=== PATIENT | female | born 2000 | race Caucasian/White ===

== ENCOUNTER 2025-04-04 21:38 | Emergency (ER) | payer OTHER, SELFPAY ==
[2025-04-04 21:41] VITALS: BP 128/85
[2025-04-04 22:00] LABS: Urine Character Clear (Clear)
[2025-04-04 22:07] LABS: Urine Squamous Cell >30 /LPF (Few)
[2025-04-04 22:09] LABS: HCG, Serum Qualitative Screen Negative
[2025-04-04 22:10] LABS: Hematocrit 36.4 % (37.0-47.0); Hemoglobin 12.2 g/dL (12.0-16.0); Mean Corp Hgb Conc. 33.5 g/dL (33.0-37.0); Mean Corpuscular Volume 85.6 fL (81.0-99.0); Nucleated Red Blood Cells % 0 %; Platelet Count 304 10^3/uL (130-400); Red Cell Dist. Width 13.0 % (11.5-14.5)
[2025-04-04 22:13] LABS: Urine Red Blood Cell 0-2 /HPF (0-2); Urine White Cell 0-2 /HPF (0-5)
[2025-04-04 22:14] LABS: ALT (SGPT) 61 U/L (0-35); AST (SGOT) 32 U/L (14-36); Albumin 4.2 g/dl (3.5-5.0); Alkaline Phosphatase 75 U/L (38-126); Blood Urea Nitrogen 14 mg/dl (7-17); Calcium 9.5 mg/dl (8.4-10.2); Carbon Dioxide 27 mmol/L (22-30); Chloride 109 mmol/L (98-107); Glucose 73 mg/dl (70-99); Lipase 103 U/L (23-300); Potassium 4.0 mmol/L (3.5-5.1); Sodium 142 mmol/L (135-145); Total Protein 6.8 g/dl (6.3-8.2); eGFR > 60.00
[2025-04-04 22:36] VITALS: BMI 53.8
[2025-04-04 22:40] VITALS: BP 118/87
[2025-04-04 23:00] VITALS: BP 110/51
--- NOTE | 2025-04-05 00:34 | ED.GENMED ---
History of Present Illness
General
Chief Complaint: Abdominal Pain
Source: patient
Exam Limitations: none
Time Seen by Provider: 04/04/25 22:36
Nursing documentation reviewed up to this point in time: agreed with
History of Present Illness
History of Present Illness:
Note:
CHIEF COMPLAINT(S)
Left lower abdominal pain.
HISTORY OF PRESENT ILLNESS
The patient is a 24-year-old female who presents with a one-day history of pain located on the left lower quadrant of her abdomen. The pain began as mild discomfort but has progressively worsened, making it difficult for her to walk or move. She
describes the pain as intense with physical activity, particularly when pressure is applied. There is no fever, chills, nausea, or vomiting. The patient denies any changes in bowel habits, urinary pain, or characteristics suggestive of menstrual
cramps, noting that the pain is above the umbilicus on light pressure when moving. The pain does not radiate and is not associated with back pain, chest pain, shortness of breath, headache, diarrhea, or constipation. There is no noted recent dietary
change, and the pain does not correlate with ovarian discomfort. Her last menstrual period was three days ago. She has had one section without complications.
PAST SURGICAL HISTORY
section (one).
PHYSICAL EXAM
General: Alert, no acute distress.
Skin: Warm, dry.
Head: Normocephalic, atraumatic.
Neck: Supple, trachea midline.
Eye, ears, nose, mouth, and throat: Oral mucosa moist.
Cardiovascular: Normal peripheral perfusion, no edema.
Respiratory: Respirations are non-labored, lungs sound clear.
Gastrointestinal: Abdomen is non-distended.
Back: Normal range of motion, normal alignment.
Musculoskeletal: Normal range of motion, normal strength.
Neurological: Alert and oriented to person, place, time, and situation, no focal neurological deficit observed.
Psychiatric: Cooperative, appropriate mood & affect.
PLAN
A computed tomography (CT) scan of the abdomen will be performed to evaluate potential causes such as diverticulitis, kidney stones, muscle strain, or other complications.
DIFFERENTIAL DIAGNOSIS
The Differential Diagnosis includes, in no particular order and is not limited to:
1. Diverticulitis
2. Kidney stones
3. Muscle strain or abdominal wall hernia
4. Appendicitis
5. Ovarian cyst rupture or torsion
6. Pelvic inflammatory disease
7. Gastroenteritis
8. Irritable bowel syndrome
9. Ectopic
10. Inflammatory bowel disease
CARE-UPDATE
04/05/25 - 00:37
CT scan reveals endometriosis implants associated with scar, presenting as two irregular soft tissue nodules with minimal fat stranding. This may contribute to the patients cyclical lower abdominal pain. Recommend outpatient follow-up with
gynecology for further evaluation. No intra-abdominal pathology detected.
Disposition:
SUMMARY OF ENCOUNTER
The patient is a 24-year-old female who presented with left-sided abdominal pain, which began one day ago. A CT scan of the abdomen was performed in the emergency department, revealing endometriosis implants associated with a scar.
DISPOSITION
Patient being discharged in stable condition.
ASSESSMENT
The finding of endometriosis implants associated with the scar may be contributing to the patients abdominal pain.
PLAN
Recommend the patient follow up with gynecology for further evaluation and management of endometriosis.
INDEPENDENT REVIEW OF LABS AND INTERPRETATION OF TESTS
My independent interpretation of the CT scan reveals endometriosis implants associated with the scar, presenting as two irregular soft tissue nodules with minimal fat stranding. No intra-abdominal pathology detected.
PATIENT EDUCATION AND COUNSELING
The patient was counseled on her diagnosis of endometriosis related to her scar and advised to schedule a follow-up appointment with an [employer] specialist for further evaluation and management.
FOLLOW-UP INSTRUCTIONS
The patient was advised to follow up with gynecology for further evaluation and management of her endometriosis.
MEDICAL DECISION MAKING
-Chronic conditions affecting care include endometriosis.
-Data:
Category 1
My independent interpretation of the CT scan indicates endometriosis implants associated with the scar.
DIAGNOSIS
Endometriosis, abdominal wall related to previous section (ICD-10: N80.8).
Phy Exam
Physical Exam
Physical Exam:
.
Course
Orders/Labs/Results
Orders:
Orders
04/04/25 21:44
Test Result ONCE
04/04/25 21:52
Complete Blood Count/With Diff Urgent
Comprehensive Metabolic Panel Urgent
HCG, Serum Qualitative Screen Urgent
Lipase Urgent
Urinalysis Reflex To Culture Urgent
Date Specimen was Collected: 04/04/25
Time Specimen was Collected: 21:44
Urine Microscopic Reflex Cult Urgent
04/04/25 22:56
CT Abd/pelvis W Iv Cont Urgent
Comment:
Reason For Exam: left lower abd pain
Abnormal Lab Results
04/04/25
21:52
Hct 36.4 L %
(37.0-47.0)
MPV 10.8 H fL
(7.4-10.4)
Absolute Lymphs (auto) 3.8 H 10^3/uL
(1.2-3.4)
Chloride 109 H mmol/L
(98-107)
ALT 61 H U/L
(0-35)
Ur Occult Blood Reflex 4+ A
(Negative)
Urine Bacteria (Reflex) Few A
(Negative)
Urine Albumin (Reflex) 1+ A
(Neg - Trace)
04/04/25 21:52
04/04/25 21:52
Vital Signs
Initial and Last Documented VS:
Initial Vital Signs
Temp Pulse Resp BP Pulse Ox
98.6 F 78 16 128/85 99
04/04/25 21:41 04/04/25 21:41 04/04/25 21:41 04/04/25 21:41 04/04/25 21:41
Last Documented Vital Signs
Temp Pulse Resp BP Pulse Ox
98.1 F 76 16 122/65 97
04/04/25 22:41 04/04/25 22:41 04/04/25 22:41 04/05/25 01:14 04/05/25 01:16
*Radiology
Radiology exam reviewed: radiology read reviewed
*Pulse Oximetry
SaO2: 97
Oxygen Mode of Delivery: Room air
Patient hypoxic: no
*Critical Care Note
Total Time (30-74mins, 75-104mins- exclusive of procedures): Not Applicable
Update Note
Update Note:
NAME: SERGO ALFORD
DATE OF EXAM: 04/04/2025
Patient No: [id number]
Physician: KADE^JING
Date of : 2000
Past Medical History (entered by Technologist):
Reason For Exam (entered by Technologist):
Other Notes (entered by Technologist): pt arrives c/o left sided abdominal pain for last day. pt denies n/v/d/c
Additional Information (per [facility]): Left-sided abdominal pain
CT abdomen and pelvis with contrast
IMPRESSION:
Findings suggest endometriosis implants related to scar
There are 2 irregular soft tissue nodules related to scar with minimal associated fat stranding
May be contributor to cyclical lower abdominal pain
Suggest outpatient follow-up with gynecology
No acute intra-abdominal pathology
Incidental hepatic steatosis
Findings discussed with Dr. Abad at 12:26 AM ET
ED Attending Note
-
Portions of this chart may have been created with voice recognition software.� Occasional wrong word or��sound alike� substitutions may have occurred due to the inherent limitations of voice recognition software.
Discharge Plan
Departure
Patient Disposition: Home (Routine Discharge)
Date of Disposition: 04/05/25
Time of Disposition: 00:45
Patient with high blood pressure during this ER visit?: Yes
Discharge Problem:
Endometriosis, Abdominal pain
Instructions: Endometriosis - ED (DC), BLOOD PRESSURE
Referrals:
[facility] [Outside] - As needed
Asiya Dunbar MD [Family Provider, Internal Medicine]
Angélica Ramirez MD [Active, Gynecology]
Activity Restrictions/Additional Instructions:
Tylenol for the pain as discussed
Thank You for choosing [facility].
It was a pleasure meeting you and taking part in your care. We hope for your continued healing and wellness.
Please read discharge instructions in their entirety. However, they are for general education and may not describe your exact diagnosis at discharge. Information on your ER visit and medical conditions were discussed with you along with appropriate
follow up information...
If indicated, please take your medications as instructed and indicated on discharge paperwork.
Please schedule a follow up appointment as directed. Call to schedule an appointment
Please return to the emergency department with ANY change in, persisting, or worsening of symptoms. If any of your symptoms do not improve, or persist, or become more severe within 6-12 hours, please return to the emergency department for further
care.
Please return to the emergency department if you develop a headache, neck pain/stiffness, fever greater than 100.4F, chest pain, shortness of breath, persistent nausea, vomiting, slurred speech, difficulty walking, numbness/tingling, weakness, signs
of infection or any other symptoms that are worrisome to you.
If you have any questions or concerns please do not hesitate to call the Hospital at or E-mail me directly at [email or web address]
Interventions
Interventions:
*Risk Screen - Suicide Last Done: 04/04/25 21:41
*General Assessment Last Done: 04/04/25 21:41
*Neglect/Abuse Screening Last Done: 04/04/25 21:41
*ED- Fall Risk Assessment Last Done: 04/04/25 22:38
*ED COVID-19 Vaccine History Last Done: 04/04/25 22:38
*Nursing Disposition Last Done: 04/05/25 01:25
BL-Yngnxt-Wedrgvwjqy Assessment Last Done: 04/04/25 22:38
Discharge Date and Time
Discharge Date/Time: 04/05/25 01:26
Print Language: LAO
[2025-04-05 01:14] VITALS: BP 122/65
== END 2025-04-05 01:26 | disposition home or self-care (01) ==
LOC: EMR 21:38
PROVIDERS: Emergency Medicine; EMERGENCY PHYSICIAN Student in an Organized Health Care Education/Training Program; FAMILY PHYSICIAN Internal Medicine
DX: N80.9 Endometriosis, unspecified (principal); Z98.891 History of uterine scar from previous surgery; K76.0 Fatty (change of) liver, not elsewhere classified
CPT/HCPCS: 99284; 74177; 80053; 81003; 81015; 83690; 84703; 85025; Q9967